=== PATIENT | female | born 1990 | race African-American/Black ===

== ENCOUNTER 2016-11-30 09:27 | Emergency (ER) | payer MEDICAID ==
[~2016-11-30] VITALS: Ht 149.9 cm; Wt 56.1 kg
[2016-11-30 09:28] VITALS: BP 113/67
== END 2016-11-30 10:28 | disposition home or self-care (01) ==
LOC: ED 10:09
DX: Z00.00 Encounter for general adult medical examination without abnormal findings (principal); J45.909 Unspecified asthma, uncomplicated; F17.210 Nicotine dependence, cigarettes, uncomplicated
CPT/HCPCS: 99283

== ENCOUNTER 2017-03-07 19:51 | Emergency (ER) | payer MEDICAID ==
[~2017-03-07] VITALS: Ht 152.4 cm; Wt 55.0 kg
[2017-03-07 21:09] VITALS: BP 95/57
== END 2017-03-07 21:53 | disposition home or self-care (01) ==
LOC: ED 21:15
DX: F10.220 Alcohol dependence with intoxication, uncomplicated (principal); F12.10 Cannabis abuse, uncomplicated; J45.909 Unspecified asthma, uncomplicated; Z79.899 Other long term (current) drug therapy; Z88.8 Allergy status to other drugs, medicaments and biological substances
CPT/HCPCS: 99283

== ENCOUNTER 2017-06-05 09:11 | Emergency (ER) | payer MEDICAID ==
[~2017-06-05] VITALS: Ht 149.9 cm; Wt 51.5 kg
[2017-06-05 09:18] VITALS: BP 106/71
== END 2017-06-05 09:56 | disposition home or self-care (01) ==
LOC: ED 09:50
DX: J45.909 Unspecified asthma, uncomplicated (principal); Z76.0 Encounter for issue of repeat prescription
CPT/HCPCS: 99283

== ENCOUNTER 2017-12-15 09:26 | Emergency (ER) | payer MEDICAID ==
[~2017-12-15] VITALS: Ht 149.9 cm; Wt 51.0 kg
[2017-12-15] MEDS ORDERED: SODIUM CHLORIDE 0.9% 1,000 ML IV ONE (09:49)
[2017-12-15] MEDS ORDERED: ALBU18HF INH (09:51)
[2017-12-15] MEDS ORDERED: MORPHINE SULFATE 4 MG/ML, 1ML ONE (09:59)
[2017-12-15] MEDS ORDERED: ONDANSETRON 2MG/ML, 2ML ONE (09:59)
[2017-12-15] MEDS ORDERED: MORPHINE SULFATE 4 MG/ML, 1ML IVPush PRN (10:00)
[2017-12-15] MEDS ORDERED: SODIUM CHLORIDE 0.9% 1,000ML IVBOLUS ONE (10:00)
[2017-12-15] MEDS ORDERED: FAMOTIDINE 20 MG/2 ML ONE (10:00)
[2017-12-15] MEDS ORDERED: FAMOTIDINE 20 MG/2 ML IVP ONE (10:00)
[2017-12-15] MEDS ORDERED: ONDANSETRON 2MG/ML, 2ML IVPush ONE (10:00)
[2017-12-15 10:12] LABS: BASOPHILS # (AUTO) 0.08 x10^3/uL (0-0.1); BASOPHILS % (AUTO) 2 % (0-1); EOSINOPHILS # (AUTO) 0.17 x10^3/uL (0-0.4); EOSINOPHILS % (AUTO) 3 % (1-7); LYMPHOCYTES # (AUTO) 2.62 x10^3/uL (1-3.4); LYMPHOCYTES % (AUTO) 51 % (22-44); MD NO; MEAN CORPUSCULAR HEMOGLOBIN 32.5 pg (27.0-34.8); MEAN CORPUSCULAR HGB CONC 34.3 g/dL (32.4-35.8); MEAN CORPUSCULAR VOLUME 94.8 fL (80-100); MEAN PLATELET VOLUME 9.3 fL (7.4-10.4); MONOCYTES # (AUTO) 0.41 x10^3/uL (0.2-0.8); MONOCYTES % (AUTO) 8 % (2-9); NEUTROPHILS % (AUTO) 37 % (42-75); PLATELET COUNT 278 x10^3/uL (130-400); RED CELL DISTRIBUTION WIDTH 13.3 % (9.6-15.2)
[2017-12-15 10:18] LABS: ALANINE AMINOTRANSFERASE 13 U/L (12-78); ALBUMIN 3.4 g/dL (3.4-5.0); ANION GAP 6 mmol/L (5-15); CALCIUM 8.4 mg/dL (8.5-10.1); CHLORIDE 112 mmol/L (98-107); CREATININE 0.68 mg/dL (0.55-1.02)
[2017-12-15 10:23] LABS: ALKALINE PHOSPHATASE 41 U/L (45-117); BILIRUBIN,TOTAL 0.7 mg/dL (0.2-1.0); TOTAL PROTEIN 6.2 g/dL (6.4-8.2)
[2017-12-15 11:32] LABS: CULTURE INDICATED? YES; MICROSCOPIC INDICATED
[2017-12-15 12:11] VITALS: BP 95/67
== END 2017-12-15 12:24 | disposition home or self-care (01) ==
LOC: ED 11:10
DX: N83.291 Other ovarian cyst, right side (principal); J45.909 Unspecified asthma, uncomplicated; L30.9 Dermatitis, unspecified; Z87.891 Personal history of nicotine dependence
CPT/HCPCS: 36415; 76856; 80053; 81001; 83690; 84703; 85025; 87086; 93005; 96374; 96375; 99285; J2405; J7030; S0028

== ENCOUNTER 2018-03-13 14:30 | Emergency (ER) | payer MEDICAID ==
[~2018-03-13] VITALS: Ht 149.9 cm; Wt 50.2 kg
[~2018-03-13 14:30] MED LIST: ALBU18HF INH
[2018-03-13 15:02] VITALS: BP 104/68
== END 2018-03-13 15:32 | disposition home or self-care (01) ==
LOC: ED 15:27
DX: J45.909 Unspecified asthma, uncomplicated (principal); Z76.0 Encounter for issue of repeat prescription
CPT/HCPCS: 99283

== ENCOUNTER 2018-05-25 09:39 | Emergency (ER) | payer MEDICAID ==
[~2018-05-25] VITALS: Ht 149.9 cm; Wt 52.3 kg
[2018-05-25 09:50] VITALS: BP 104/69
== END 2018-05-25 10:42 | disposition home or self-care (01) ==
LOC: ED 10:00
DX: J45.30 Mild persistent asthma, uncomplicated (principal); Z87.891 Personal history of nicotine dependence
CPT/HCPCS: 99283

== ENCOUNTER 2018-09-26 10:53 | Emergency (ER) | payer MEDICAID ==
[~2018-09-26] VITALS: Ht 149.9 cm; Wt 49.9 kg
[2018-09-26 11:01] VITALS: BP 99/63
--- NOTE | 2018-09-26 11:46 | NUR ---
Patient/Caregiver given discharge instructions and they have confirmed that they understand the instructions. Patient ambulatory with steady gait.
== END 2018-09-26 11:48 | disposition home or self-care (01) ==
LOC: ED 11:15
DX: J45.909 Unspecified asthma, uncomplicated (principal); Z76.0 Encounter for issue of repeat prescription; Z88.8 Allergy status to other drugs, medicaments and biological substances
CPT/HCPCS: 99283